=== PATIENT | male | born 1970 | race African-American/Black ===

== ENCOUNTER 2024-10-20 18:03 | Inpatient (IN) | payer OTHER ==
[2024-10-20 19:14] VITALS: BMI 22.6
[2024-10-20] MEDS ORDERED: MAGNESIUM HYDROX 2400MG/30ML ORAL SUSPENSION 30 ML CUP PO PRN (21:35)
[2024-10-20] MEDS ORDERED: IBUPROFEN 400 MG TABLET (FP) PO PRN (21:35)
[2024-10-20] MEDS ORDERED: NICOTINE POLACRILEX 2 MG GUM BUC PRN (21:35)
[2024-10-20] MEDS ORDERED: MAG HYDROX/AL HYDROX/SIMETH 30 ML UNIT-DOSE CUP PO PRN (21:35)
[2024-10-20] MEDS ORDERED: NALOXONE (NARCAN) HCL 4 MG/0.1 ML SPRAY NS PRN (21:35)
[2024-10-20] MEDS ORDERED: guaiFENesin 600 MG TABLET.ER (FP) PO PRN (21:35)
[2024-10-20] MEDS ORDERED: LOPERAMIDE HCL 2 MG CAPSULE PO PRN (21:35)
[2024-10-20] MEDS ORDERED: IBUPROFEN 600 MG TABLET (FP) PO PRN (21:35)
[2024-10-20] MEDS ORDERED: BENZONATATE 200 MG CAPSULE PO PRN (21:35)
[2024-10-20] MEDS ORDERED: POLYETHYLENE GLYCOL (HEALTHYLAX) 3350 17 GM PACKET PO PRN (21:35)
[2024-10-21] MEDS ORDERED: TUBERCULIN PPD 5 TU/0.1ML SYRINGE (IN PATIENT USE ONLY) ID ONE (01:37)
[2024-10-21] MEDS: THIAMINE 100 MG TABLET PO SCH (02:03)
[2024-10-21] MEDS: MELATONIN 5 MG TABLETS PO SCH (02:03)
[2024-10-21] MEDS ORDERED: methaDONE HCL 10 MG TABLET PO ONE (09:12)
[2024-10-21] MEDS: PRENATAL VITAMINS W/ FOLIC ACID TABLET (FP) PO SCH (09:57)
[2024-10-21] MEDS: TUBERCULIN PPD 5 TU/0.1ML SYRINGE (IN PATIENT USE ONLY) ID ONE (09:57)
[2024-10-21] MEDS: methaDONE HCL 40 MG DISPERSABLE TABLET PO ONE (09:57)
[2024-10-21] MEDS: NICOTINE 14 MG/24 HOURS TOPICAL PATCH TD SCH (09:58)
[2024-10-21 11:09] LABS: HEMOGLOBIN 12.5 GM/dL (11.7-16.9); MCH 33.2 pg (25.7-33.7); MCHC 33.8 g/dl (32.0-35.9); MEAN CELL VOLUME 98.1 fl (80-96); MEAN PLT VOLUME 8.6 fl (7.5-11.1); PLATELET COUNT 145 10^3/uL (134-434); RBC 3.77 M/mm3 (4.00-5.60); RDW 14.5 % (11.9-15.9); WHITE BLOOD COUNT 5.1 K/mm3 (4.0-10.0)
[2024-10-21 11:17] LABS: CHLORIDE 104 mmol/L (98-107); POTASSIUM 4.4 mmol/L (3.5-5.1); SODIUM 139 mmol/L (136-145)
[2024-10-21 11:20] LABS: CALCIUM 9.1 mg/dL (8.5-10.1)
[2024-10-21 11:21] LABS: ANION GAP 5 mmol/L (4-13); BLOOD UREA NITROGEN 20.3 mg/dL (7-18); CO2 30 mmol/L (21-32); GLUCOSE,RANDOM 86 mg/dL (74-106)
[2024-10-21 11:24] LABS: CREATININE 0.8 mg/dL (0.55-1.3); SGOT/AST 12 U/L (15-37); SGPT/ALT 19 U/L (13-61)
[2024-10-21 11:26] LABS: BILIRUBIN,TOTAL 0.5 mg/dL (0.2-1); TOT PROT 7.3 g/dl (6.4-8.2)
[2024-10-21 11:27] LABS: ALK PHOS 60 U/L (45-117)
[2024-10-22] MEDS ORDERED: PATIENT'S OWN MEDICATION (NON-FORMULARY) (Methadone 140 MG) PO SCH (06:00)
[2024-10-22] MEDS ORDERED: methaDONE HCL 40 MG DISPERSABLE TABLET PO SCH (06:30)
[2024-10-23 11:36] LABS: PH,URINE 5.5 (5.0-8.0); URINE APPEARANCE CLEAR; URINE BILIRUBIN NEGATIVE (NEGATIVE); URINE COLOR YELLOW; URINE GLUCOSE (UA) NEGATIVE (NEGATIVE); URINE KETONE NEGATIVE (NEGATIVE); URINE LEUK ESTERASE NEGATIVE (NEGATIVE); URINE NITRITE NEGATIVE (NEGATIVE); URINE PROTEIN NEGATIVE (NEGATIVE); URINE UROBILINOGEN 0.2 mg/dL (0.2-1.0)
[2024-10-23] MEDS: APIXABAN 5 MG TABLET PO SCH (17:03)
[2024-10-23] MEDS: hydrOXYzine PAMOATE 25 MG CAPSULE (FP) PO PRN (21:01)
[2024-10-24] MEDS: FOLIC ACID 1 MG TABLET (FP) PO SCH (10:15)
[2024-10-24] MEDS: PANTOPRAZOLE 40 MG TABLET PO SCH (10:15)
[2024-10-25] MEDS: GABAPENTIN 100 MG CAPSULE PO SCH (14:28)
[2024-10-25] MEDS: CLOTRIMAZOLE 1%TOPICAL SOLUTION 30 ML BOTTLE TP SCH (14:29)
[2024-10-25] MEDS: SELENIUM SULFIDE 2.25% 180 ML SHAMPOO TP SCH (14:29)
[2024-10-25] MEDS: BACLOFEN 10 MG TABLET (FP) PO SCH (21:27)
[2024-10-26] MEDS: MIRTAZAPINE 15 MG TABLET (FP) PO SCH (21:04)
[2024-10-28] MEDS ORDERED: methaDONE HCL 10 MG TABLET PO SCH (06:00)
[2024-10-28] MEDS: methaDONE 40 MG, methaDONE 30 MG PO SCH (06:08)
[2024-10-28] MEDS: APIXABAN 5 MG TABLET PO SCH (09:39)
[2024-10-28] MEDS ORDERED: BENZONATATE 200 MG CAPSULE PO PRN (14:54)
[2024-10-28] MEDS ORDERED: guaiFENesin 600 MG TABLET.ER (FP) PO PRN (14:54)
[2024-10-28] MEDS: CALAMINE 8% TOPICAL LOTION 177 ML BOTTLE TP PRN (21:54)
[2024-10-29] MEDS: OXYMETAZOLINE 0.05% NASAL SOLUTION 15 ML BOTTLE NS PRN (09:44)
[2024-10-29] MEDS: ACETAMINOPHEN 325 MG TABLET (FP) PO PRN (17:25)
[2024-11-02] MEDS: P-EPHED 60MG/TRIPROLIDI 2.5MG TABLET PO PRN (14:58)
[2024-11-02] MEDS: QUEtiapine FUMARATE 50 MG TABLET PO SCH (21:08)
[2024-11-04] MEDS: GABAPENTIN 100 MG CAPSULE PO SCH (13:07)
[2024-11-04] MEDS: BENZOCAINE/MENTHOL (CHLORASEPTIC ) LOZENGE MM PRN (21:07)
[2024-11-09] MEDS: QUEtiapine FUMARATE 100 MG TABLET (FP) PO SCH (21:07)
[2024-11-10] MEDS ORDERED: methaDONE HCL 10 MG TABLET PO SCH (06:00)
[2024-11-10 06:36] VITALS: BP 115/82; PULSE 87; RESP 16; TEMP 98.2
== END 2024-11-10 09:37 | disposition home or self-care (01) | DRG 772 ==
LOC: YASAS 18:03 → Y3NR 23:54 → Y3E 10-21 10:06
PROVIDERS: ADMIT Psychiatry & Neurology Pain Medicine; ATTEND Psychiatry & Neurology Pain Medicine
PROC: HZ42ZZZ Group Counseling for Substance Abuse Treatment, Cognitive-Behavioral (ICD-10-PCS; principal; 2024-10-19)
DX: F11.20 Opioid dependence, uncomplicated (principal); F10.20 Alcohol dependence, uncomplicated; F14.20 Cocaine dependence, uncomplicated; F17.210 Nicotine dependence, cigarettes, uncomplicated; F19.282 Other psychoactive substance dependence with psychoactive substance-induced sleep disorder; F19.24 Other psychoactive substance dependence with psychoactive substance-induced mood disorder; F32.A Depression, unspecified; K06.9 Disorder of gingiva and edentulous alveolar ridge, unspecified; K21.9 Gastro-esophageal reflux disease without esophagitis; L85.3 Xerosis cutis; B35.0 Tinea barbae and tinea capitis; Z86.711 Personal history of pulmonary embolism; Z79.01 Long term (current) use of anticoagulants
CPT/HCPCS: 0241U-QW; 36415; 80053; 80305; 80307; 81003; 85027; 86780; 87811; 93005; 93010; J0475